=== PATIENT | female | born 1985 | race Caucasian/White ===

== ENCOUNTER 2018-06-02 10:31 | Outpatient (CLI) | payer OTHER ==
[2018-06-02 11:40] LABS: RUPTURE FETAL MEMBRANES NEGATIVE (NEGATIVE)
== END 2018-06-02 12:00 | disposition home or self-care (01) ==
LOC: OBT 10:31 → L-D 10:31 → OBT 12:00
DX: O62.9 Abnormality of forces of labor, unspecified (principal); Z3A.39 39 weeks gestation of pregnancy
CPT/HCPCS: 76818; 84112

== ENCOUNTER 2018-06-13 12:30 | Inpatient (IN) | payer OTHER ==
[2018-06-13] MEDS ORDERED: METHYLERGONOVINE 0.2 MG INJ IM (13:00)
[2018-06-13] MEDS ORDERED: BUTORPHANOL 2 MG INJ IV (13:00)
[2018-06-13] MEDS ORDERED: CARBOPROST 250 MCG INJ IM (13:00)
[2018-06-13] MEDS ORDERED: OXYTOCIN 30 UNITS/LR 500 ML IV ×2 (13:00)
[2018-06-13] MEDS ORDERED: LIDOCAINE 1% (MPF) 30 ML INJ INJ (13:00)
[2018-06-13] MEDS ORDERED: MISOPROSTOL 200 MCG TAB PR (13:00)
[2018-06-13] MEDS: LACTATED RINGER'S 1,000 ML IV ×4 (14:20→23:32)
[2018-06-13 14:37] LABS: ADD MAN DIFF? NO
[2018-06-13 14:41] LABS: WHITE BLOOD COUNT 16.5 10^3/ul (4.8-10.8)
[2018-06-13 14:41] LABS: BASOPHILS % 0.2 % (0.0-2.0); EOSINOPHILS % 0.2 % (0.0-7.0); HEMATOCRIT 36.9 % (37.0-47.0); HEMOGLOBIN 12.3 g/dl (12.0-16.0); LYMPHOCYTES # 2.2 10^3/ul (0.8-2.9); LYMPHOCYTES % 13.6 % (15.0-51.0); MEAN CORPUSCULAR HEMOGLOBIN 31.3 pg (29.0-33.0); MEAN CORPUSCULAR HGB CONC 33.3 g/dl (32.0-37.0); MEAN CORPUSCULAR VOLUME 93.9 fl (82.0-101.0); MEAN PLATELET VOLUME 9.8 fl (7.4-10.4); MONOCYTE # 1.1 10^3/ul (0.3-0.9); MONOCYTES % 6.7 % (0.0-11.0); NEUTROPHILS % 78.7 % (39.0-77.0); PLATELET COUNT 343 10^3/UL (140-415); POSITIVE DIFF @See below; RED BLOOD COUNT 3.93 10^6/ul (4.20-5.40); RED CELL DISTRIBUTION WIDTH 13.8 % (11.5-14.5)
[2018-06-13] MEDS: OXYTOCIN 30 UNITS/LR 500 ML IV (15:33)
[2018-06-13 17:40] LABS: INR 0.91; PROTIME 12.4 Sec (11.9-14.9)
[2018-06-13 17:41] LABS: PARTIAL THROMBOPLASTIN TIME 28.3 Sec (23.0-35.0)
[2018-06-13 19:50] LABS: RAPID PLASMA REAGIN NONREACTIVE (NR)
[2018-06-13] MEDS ORDERED: FENTAnyl 2MCG/ML-ROPIV 0.2% 100 ML (20:52)
[2018-06-13] MEDS ORDERED: ONDANSETRON 4 MG INJ IV (21:30)
[2018-06-13] MEDS ORDERED: DIPHENHYDRAMINE 50 MG INJ IV (21:30)
[2018-06-13] MEDS ORDERED: NALOXONE (0.4 MG/ML) INJ IV (21:30)
[2018-06-13] MEDS ORDERED: NALBUPHINE HCL (10 MG/1 ML) INJ IV (21:30)
[2018-06-13] MEDS ORDERED: EPHEDrine SULFATE 50 MG/5 ML SYG (22:12)
[2018-06-13] MEDS: EPHEDrine SULFATE 50 MG/5 ML SYG IV (22:17)
[2018-06-13] MEDS: FENTAnyl 2MCG/ML-ROPIV 0.2% 100 ML BAG EPI (23:32)
[2018-06-14 00:12] LABS: HEPATITIS B SURFACE ANTIGEN NEGATIVE (NEGATIVE)
[2018-06-14] MEDS: MINERAL OIL LIGHT 10 ML VIAL TOP (04:52)
[2018-06-14] MEDS ORDERED: AMPICILLIN 2 GM/NS (PMX) 100 ML (04:59)
[2018-06-14] MEDS: AMPICILLIN 2 GM/NS (PMX) 100 ML IVPB (05:05)
[2018-06-14] MEDS: OXYTOCIN 30 UNITS/LR 500 ML IV ×2 (05:20→09:24)
[2018-06-14] MEDS: IBUPROFEN 600 MG TAB PO ×4 (09:23→23:33)
[2018-06-14] MEDS ORDERED: CARBOPROST 250 MCG INJ IM (09:30)
[2018-06-14] MEDS ORDERED: MISOPROSTOL 200 MCG TAB PR (09:30)
[2018-06-14] MEDS ORDERED: OXYCODONE/ASPIRIN (4.88/325) TAB PO ×2 (09:30)
[2018-06-14] MEDS ORDERED: METHYLERGONOVINE 0.2 MG INJ IM (09:30)
[2018-06-14] MEDS ORDERED: OXYTOCIN 30 UNITS/LR 500 ML IV (09:30)
[2018-06-14] MEDS ORDERED: ZOLPIDEM 5 MG TAB PO (09:30)
[2018-06-14] MEDS: BENZOCAINE 20% 56 ML SPRAY TOP (12:43)
[2018-06-14] MEDS: WITCH HAZEL/GLYCERIN PAD PR (12:44)
[2018-06-14] MEDS: LANOLIN HPA 1 PKT TOP (12:44)
[2018-06-14] MEDS: SENNA/DOCUSATE NA (8.6MG/50MG) TAB PO (21:07)
[2018-06-15] MEDS: IBUPROFEN 600 MG TAB PO ×3 (05:40→17:40)
[2018-06-15 07:56] LABS: ADD MAN DIFF? NO
[2018-06-15 08:06] LABS: WHITE BLOOD COUNT 12.2 10^3/ul (4.8-10.8)
[2018-06-15 08:06] LABS: BASOPHILS % 0.3 % (0.0-2.0); EOSINOPHILS # 0.1 10^3/ul (0.0-0.5); HEMATOCRIT 28.9 % (37.0-47.0); HEMOGLOBIN 9.6 g/dl (12.0-16.0); LYMPHOCYTES # 2.1 10^3/ul (0.8-2.9); LYMPHOCYTES % 17.1 % (15.0-51.0); MEAN CORPUSCULAR HEMOGLOBIN 31.7 pg (29.0-33.0); MEAN CORPUSCULAR HGB CONC 33.2 g/dl (32.0-37.0); MEAN CORPUSCULAR VOLUME 95.4 fl (82.0-101.0); MEAN PLATELET VOLUME 9.1 fl (7.4-10.4); MONOCYTE # 0.9 10^3/ul (0.3-0.9); MONOCYTES % 7.4 % (0.0-11.0); NEUTROPHILS % 73.4 % (39.0-77.0); PLATELET COUNT 276 10^3/UL (140-415); RED BLOOD COUNT 3.03 10^6/ul (4.20-5.40); RED CELL DISTRIBUTION WIDTH 14.2 % (11.5-14.5)
[2018-06-15] MEDS: SENNA/DOCUSATE NA (8.6MG/50MG) TAB PO (08:32)
[2018-06-16] MEDS ORDERED: DIPHTH/TET/ACEL PERTUSS (ADULT) 0.5 ML VIAL IM* (09:00)
== END 2018-06-15 20:45 | disposition home or self-care (01) | DRG 807 ==
LOC: OBT 12:30 → PP1 06-14 07:36 → L-D 12:32 → OBT 12:53 → L-D 12:53
PROVIDERS: Specialist
PROC: 10E0XZZ Delivery of Products of Conception, External Approach (ICD-10-PCS; principal; 2018-06-14)
PROC: 0HQ9XZZ Repair Perineum Skin, External Approach (ICD-10-PCS; 2018-06-14)
PROC: 10907ZC Drainage of Amniotic Fluid, Therapeutic from Products of Conception, Via Natural or Artificial Opening (ICD-10-PCS; 2018-06-14)
DX: O69.3XX0 Labor and delivery complicated by short cord, not applicable or unspecified (principal); Z37.0 Single live birth; O77.0 Labor and delivery complicated by meconium in amniotic fluid; O70.9 Perineal laceration during delivery, unspecified; Z3A.40 40 weeks gestation of pregnancy
CPT/HCPCS: 62319; 76815; 85025; 85610; 85730; 86592; 86850; 86900; 86901; 87340